=== PATIENT | male | born 1940 | race Hispanic/Latino ===

== ENCOUNTER 2016-10-31 10:38 | Emergency (ER) | payer OTHER ==
[~2016-10-31] VITALS: Ht 172.7 cm; Wt 76.2 kg
[2016-10-31] MEDS ORDERED: METFORMIN HCL1000 M1 PO (11:22)
[2016-10-31] MEDS ORDERED: LEVOTHYROXINE75 MCG PO (11:22)
[2016-10-31] MEDS ORDERED: LIPITOR10 M1 PO (11:23)
[2016-10-31] MEDS ORDERED: HUMULIN N100 UNIT/1 SC (11:25)
--- NOTE | 2016-10-31 11:26 | ED GI/GU/ABDOMINAL COMPLAINT ---
See Addendum History of Present Illness General Chief Complaint: General Adult Stated Complaint: MULTIPLE COMPLAINTS Source: patient, family Exam Limitations: no limitations Vital Signs & Intake/Output Vital Signs & Intake/Output ED Intake and Output 11/01 0000 10/31 1200 Intake Total 1000 Output Total Balance 1000 Intake, IV 1000 Patient 168 lb Weight Allergies Coded Allergies: chicken derived (UNKNOWN 10/31/16) Reconcile Medications Anusol Hc (Anusol-Hc) 25 MG SUPP.RECT 1 SUP RC BID hemorrhoid Atorvastatin Calcium (Lipitor) 10 MG TABLET 1 TAB PO DAILY CHOLESTEROL ( Reported) Ciprofloxacin HCl (Cipro) 500 MG TABLET 1 TAB PO BID uti Humulin N (Veda) (Humulin N) (Unknown Strength) VIAL (Unknown Dose) SC SEE SLIDING SCALE DM (Reported) Levothyroxine Sodium 75 MCG TABLET 1 TAB PO DAILY AC THYROID (Reported) Metformin HCl 1,000 MG TABLET 1 TAB PO BID DM (Reported) Triage Note: PT COMES TO ER WITH COMPLAINTS OF DIFFUSE LOW ABD PAIN THAT AT TIMES INCREASES IN INTENSITY. PT HAS RODRIGUEZ IN PLACE, WAS PLACED IN [facility] WHERE PT LIVES 6 MONTHS OUT OF THE YEAR. PT STATES THAT HE WAS TOLD HE HAD AN ENLARGED PROSTATE. Triage Nurses Notes Reviewed? yes Onset: Abrupt Duration: week(s): (1), constant Timing: recent history Quality/Severity: aching, cramping Severity Numbers: 7 Location: left lower quadrant, suprapubic Radiation: no radiation Activities at Onset: none Prior Abdominal Problems: similar symptoms No Modifying Factors: none Associated Symptoms: denies HPI: 75-year-old male presents with his family for evaluation complaining of a 2 week history of bilateral lower abdominal pain described as cramping associated with urinary retention and decreased appetite. According to the patient's family he just flew in from [facility] this morning landing at 7 AM. His family states that he had a Rodriguez catheter placed one week ago due to urinary retention, and they states that they do not feel safe or comfortable with [facility]. There is been no nausea no vomiting no fever no chills. No change in his bowel movements he denies any blood in his urine no back pain. He is not currently on any antibiotics no history of similar episodes in the past no history of abdominal surgeries. (NEVA BURDICK,CIERRA) Past History Travel History Traveled to [place] past 21 day No Medical History Any Pertinent Medical History? 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 No (CIERRA QUIROS) Review of Systems Review of Systems Constitutional: Reports: see HPI. All Other Systems: Reviewed and Negative Comments Review of systems: See HPI, All other systems negative. Constitutional, no chills no fever, no malaise HEENT: No visual changes no sore throat no congestion Cardiovascular: No chest pain , no palpitation Skin, no rashes, no change in skin Respiratory: No dyspnea no cough no sputum GI: No nausea no vomiting, no diarrhea, : No dysuria No hematuria, no frequency, no discharge Muscle skeletal: No joint pain no back pain, no neck pain, Neurologic: No numbness no headache Psych: No stress Heme/endocrine: No bruising no bleeding Immunology: No lymphadenopathy (CIERRA QUIROS) Physical Exam Physical Exam General Appearance: well developed/nourished, no apparent distress, alert Gastrointestinal: normal bowel sounds, soft, non-tender Comments: Well-developed well-nourished person in no acute distress HEENT: Normal EENT exam; PERRL, EOMI, HEAD is atraumatic. moist mucous membranes. Neck: Supple, , normal range of motion Back: Nontender, no CVA tenderness. Full range of motion Cardiovascular: Regular rate and rhythms no murmurs rubs Respiratory:.There were no bony deformities, no asymmetry. No respiratory distress. Patient speaking in full complete sentences. Breath sounds clear to auscultation bilaterally: NO W/R/R Abdomen: Soft, nontender nondistended, no appreciable organomegaly. Normal bowel sounds. No rebound/guarding, No appreciable enlargement of the abdominal aorta, No ascites. Extremity: No edema, full range of motion of extremities Neuro: Alert oriented x3, motor sensory normal, There were no obvious focal neurologic abnormalities. Skin: No appreciable rash on exposed skin, skin is warm and dry. Psych: Mood and affect is normal, memory and judgment is normal. Core Measures ACS in differential dx? No Severe Sepsis Present: No Septic Shock Present: No (NEVA BURDICK,CIERRA) Progress Differential Diagnosis: AAA, appendicitis, biliary colic, bowel obstruction, colon cancer, cholecystitis, diverticulitis, epididymitis, gastritis, hepatitis, ischemic bowel, inflamm bowel dis, pancreatitis, prostatitis, peptic ulcer, PUD/ GERD, perforated viscous, pyelonephritis, SBO, ureterolithiasis, urinary retention, urethritis, UTI/pyelo, sepsis, malignacy Plan of Care: Orders Procedure Date/time Status CULTURE,URINE 11/01 1119 Active URINALYSIS 11/01 1119 Complete COMPREHENSIVE METABOLIC PANEL 11/01 1119 Complete CBC WITHOUT DIFFERENTIAL 11/01 1119 Complete Laboratory Tests 10/31/16 1150: Urinalysis LIGHT H, Urine Color YEL, Urine Clarity HAZY H, Urine pH 6.0, Ur Specific Butner 1.025, Urine Protein 100 H, Urine Ketones NEG, Urine Nitrite POS H, Urine Bilirubin NEG, Urine Urobilinogen 0.2, Ur Leukocyte Esterase LARGE H, Ur Microscopic SEDIMENT EXAMINED, Urine RBC 10-15 H, Urine WBC > 75 H, Ur Epithelial Cells RARE, Urine Bacteria MANY H, Urine Hemoglobin LARGE H, Urine Glucose NEG 10/31/16 1129: Anion Gap 9, Estimated GFR > 60, BUN/Creatinine Ratio 20.9, Glucose 205 H, Calcium 9.4, Total Bilirubin 0.7, AST 55, ALT 80 H, Alkaline Phosphatase 140 H , Total Protein 6.1 L, Albumin 2.8 L, Globulin 3.3, Albumin/Globulin Ratio 0.8 L, CBC w Diff NO MAN DIFF REQ, RBC 4.92, MCV 86.1, MCH 29.3, RDW 15.7 H, MPV 10.0, Gran % 79.2 H, Lymphocytes % 13.2 L, Monocytes % 5.8, Eosinophils % 1.6, Basophils % 0.2, Absolute Granulocytes 8.7 H, Absolute Lymphocytes 1.5, Absolute Monocytes 0.6, Absolute Eosinophils 0.2, Absolute Basophils 0, PUBS MCHC 34.0 Microbiology 10/31 1150 URINE ROUT: Urine Culture - RECD Labs ordered old records reviewed, case discussed with Dr. bucio Repeat evaluation patient resting comfortable and discussed with the patient and his family at length all his lab results pending CT I discussed the patient and his family his CT results and incidental findings, there is no right upper quadrant tenderness to palpation negative Mandel sign. Need for close follow-up with whom they state the patient has seen before in the past several years ago area discussed with him that we will leave the Rodriguez that was placed in [facility] in at this time d/t bph. Per prescription for Cipro provided the patient is also requesting the suppository which he states he's had before for his hemorrhoids, he denies any bleeding with his bowel movements however states she has been straining and feels that his hemorrhoids are coming back. I advised the patient is family close follow-up with her primary care physician as well as urologist however if his symptoms worsen, decreased urine output fever chills nausea vomiting worsening pain to return to the emergency room immediately answered all their questions they feel comfortable with this plan (NEVA BURDICK,CIERRA) Diagnostic Imaging: Viewed by Me: CT Scan. Discussed w/RAD: CT Scan. Radiology Impression: PRESENT AGE: 75 PATIENT ACCOUNT NO: [id number] : 42 LOCATION: [facility] ORDERING PHYSICIAN: CIERRA BURDICK SERVICE DATE: 10/31/161152 EXAM TYPE: CAT - CT ABD & PELVIS W IV CONTRAST EXAMINATION: CT ABDOMEN AND PELVIS WITH CONTRAST CLINICAL INFORMATION: Urinary retention, lower abdominal pain and fever. Evaluate for pyelonephritis or mass. COMPARISON: None TECHNIQUE: Multidetector volumetric imaging was performed of the abdomen and pelvis before and after the IV administration of 93 mL of of Optiray 320 intravenous contrast. Sagittal and coronal reformatted images were obtained on the technologist's workstation. DLP: 659.42 mGy-cm FINDINGS: LUNG BASES: 0.3 cm calcified granuloma within the left lower lobe. There is a 1.3 cm lucent/cystic emphysematous space in the right lower lobe. There is mild subsegmental atelectasis within the medial segment of the middle lobe, inferior lingula and left lower lobe. LIVER, GALLBLADDER, AND BILIARY TREE: Liver has normal size and contour. Liver parenchyma is diffusely hypodense relative to the spleen on these portal venous phase images; this suggests possibility of mild steatosis. There is cholelithiasis without evidence of gallbladder wall edema or pericholecystic inflammatory change. PANCREAS: Unremarkable. SPLEEN: Unremarkable. ADRENAL GLANDS: Unremarkable. KIDNEYS AND URETERS: Kidneys are normal in size and enhance symmetrically. Mild bilateral perinephric edema. Several simple cortical cysts of the left kidney, largest measuring up to 2 cm. A 1.6 cm simple cortical cyst is present within the right lower pole. Also, there are a few subcentimeter sized hypodense foci that are likely cysts but are too small for definitive characterization. No nephrolithiasis. There is mild right hydronephrosis and moderate right hydroureter. On the left, mild hydroureter is present. There appears to be urothelial thickening of each distal ureter without evidence of ureteral calculus. BLADDER: Urinary bladder is decompressed by a Rodriguez catheter and the bladder base is compressed by the large prostate gland. Mild, diffuse thickening of the bladder wall is present. GASTROINTESTINAL TRACT: Stomach is unremarkable. Bowel loops are normal in size. No evidence of acute inflammation or obstruction along the gastrointestinal tract. No ascites or pneumoperitoneum. ABDOMINAL WALL: Unremarkable. LYMPH NODES: No pathologic sized lymph nodes within the abdomen or pelvis. VASCULAR: Mild atherosclerotic calcification of the abdominal aorta and iliac arteries without aneurysm. PELVIC VISCERA: Large prostate gland measures 6.8 x 5.7 x 7 cm and compresses the bladder base. No pelvic free fluid. OSSEOUS STRUCTURES: L4-L5 and L5-S1 disc space narrowing and vacuum disc phenomenon. Bilateral pars interarticularis defects of L5 with 0.4 cm of retrolisthesis of L4 on L5 and 0.6 cm of grade 1 anterolisthesis of L5 on S1. Mild osteoarthrosis of the hips. IMPRESSION: 1. Large prostate gland (6.8 x 5.7 x 7 cm) compresses the bladder base and likely causes chronic partial bladder outlet obstruction. Diffuse thickening of the urinary bladder wall could reflect presence of detrusor muscle hypertrophy, although cystitis could have a similar appearance. There is bilateral hydroureter (right worse on left) and mild right hydronephrosis. The presence of urothelial thickening of each distal ureter suggests possibility of upper urinary tract infection. However, there is no evidence of pyelonephritis or renal abscess. 2. Cholelithiasis without cholecystitis. DICTATED BY: MADYSON PEREIRA MD DATE/TIME DICTATED:10/31/161307 PLASTIC SHEETS FINISHING SUPERVISOR:RTAM DATE/TIME TRANSCRIBED:10/31/161307 CONFIDENTIAL, DO NOT COPY WITHOUT APPROPRIATE AUTHORIZATION. <Electronically signed in Other Vendor System> SIGNED BY: MADYSON PEREIRA MD 10/31/16 1326 Initial ED EKG: none (CIERRA UQIROS) Departure Departure Time of Disposition: 1352 Disposition: HOME OR SELF CARE Condition: Stable Clinical Impression Primary Impression: UTI (urinary tract infection) Secondary Impressions: Cholelithiasis, Enlarged prostate Referrals: PATIENT HAS NO PRIMARY CARE DR (PCP) ALLIE ROSSI MD Additional Instructions: Follow-up with urologist Dr. Rossi this week. Cipro as directed. Anusol suppository as discussed. Drink plenty of fluids return immediately if he had decreased urine output develop fever chills worsening pain or any other concerns These prescriptions were sent to your pharmacy Departure Forms: Customer Survey General Discharge Information Prescriptions: Current Visit Scripts Ciprofloxacin HCl (Cipro) 1 TAB PO BID #14 TAB Anusol Hc (Anusol-Hc) 1 SUP RC BID #14 SUP (CIERRA QUIROS) PA/STAPLE CUTTER Co-Sign Statement Statement: ED Attending supervision documentation- x I saw and evaluated the patient. I have also reviewed all the pertinent lab results and diagnostic results. I agree with the findings and the plan of care as documented in the PA's/STAPLE CUTTER's documentation. [] I have reviewed the ED Record and agree with the PA's/STAPLE CUTTER's documentation. [] Additions or exceptions (if any) to the PAs/STAPLE CUTTER's note and plan are summarized below: [] (BRIANNE LESLIE,MIGUE)
[2016-10-31 11:36] LABS: ABSOLUTE BASOPHIL COUNT 0 /CUMM (0.0-0.2); ABSOLUTE EOSINOPHIL COUNT 0.2 /CUMM (0.0-0.7); ABSOLUTE GRANULOCYTE CT 8.7 /CUMM (1.4-6.5); ABSOLUTE LYMPH COUNT 1.5 /CUMM (1.2-3.4); ABSOLUTE MONOCYTE COUNT 0.6 /CUMM (0.10-0.60); BASOPHIL % 0.2 % (0.0-2.0); EOSINOPHIL % 1.6 % (0-5); GRANULOCYTE % 79.2 % (42.2-75.2); HEMATOCRIT 42.4 % (42-52); MEAN CORPUSCULAR HGB 29.3 PG (27.0-31.0); MEAN CORPUSCULAR VOLUME 86.1 FL (80.0-94.0); PLATELET COUNT 167 /CUMM (130-400); RBC DISTRIBUTION WIDTH 15.7 % (11.5-14.5); RED BLOOD CELL CT 4.92 /CUMM (4.70-6.10)
[2016-10-31 13:22] VITALS: BP 129/68
--- NOTE | 2016-10-31 13:26 | CT SCAN REPORT ---
EXAMINATION: CT ABDOMEN AND PELVIS WITH CONTRAST CLINICAL INFORMATION: Urinary retention, lower abdominal pain and fever. Evaluate for pyelonephritis or mass. COMPARISON: None TECHNIQUE: Multidetector volumetric imaging was performed of the abdomen and pelvis before and after the IV administration of 93 mL of of Optiray 320 intravenous contrast. Sagittal and coronal reformatted images were obtained on the technologist's workstation. DLP: 659.42 mGy-cm FINDINGS: LUNG BASES: 0.3 cm calcified granuloma within the left lower lobe. There is a 1.3 cm lucent/cystic emphysematous space in the right lower lobe. There is mild subsegmental atelectasis within the medial segment of the middle lobe, inferior lingula and left lower lobe. LIVER, GALLBLADDER, AND BILIARY TREE: Liver has normal size and contour. Liver parenchyma is diffusely hypodense relative to the spleen on these portal venous phase images; this suggests possibility of mild steatosis. There is cholelithiasis without evidence of gallbladder wall edema or pericholecystic inflammatory change. PANCREAS: Unremarkable. SPLEEN: Unremarkable. ADRENAL GLANDS: Unremarkable. KIDNEYS AND URETERS: Kidneys are normal in size and enhance symmetrically. Mild bilateral perinephric edema. Several simple cortical cysts of the left kidney, largest measuring up to 2 cm. A 1.6 cm simple cortical cyst is present within the right lower pole. Also, there are a few subcentimeter sized hypodense foci that are likely cysts but are too small for definitive characterization. No nephrolithiasis. There is mild right hydronephrosis and moderate right hydroureter. On the left, mild hydroureter is present. There appears to be urothelial thickening of each distal ureter without evidence of ureteral calculus. BLADDER: Urinary bladder is decompressed by a Silva catheter and the bladder base is compressed by the large prostate gland. Mild, diffuse thickening of the bladder wall is present. GASTROINTESTINAL TRACT: Stomach is unremarkable. Bowel loops are normal in size. No evidence of acute inflammation or obstruction along the gastrointestinal tract. No ascites or pneumoperitoneum. ABDOMINAL WALL: Unremarkable. LYMPH NODES: No pathologic sized lymph nodes within the abdomen or pelvis. VASCULAR: Mild atherosclerotic calcification of the abdominal aorta and iliac arteries without aneurysm. PELVIC VISCERA: Large prostate gland measures 6.8 x 5.7 x 7 cm and compresses the bladder base. No pelvic free fluid. OSSEOUS STRUCTURES: L4-L5 and L5-S1 disc space narrowing and vacuum disc phenomenon. Bilateral pars interarticularis defects of L5 with 0.4 cm of retrolisthesis of L4 on L5 and 0.6 cm of grade 1 anterolisthesis of L5 on S1. Mild osteoarthrosis of the hips. IMPRESSION: 1. Large prostate gland (6.8 x 5.7 x 7 cm) compresses the bladder base and likely causes chronic partial bladder outlet obstruction. Diffuse thickening of the urinary bladder wall could reflect presence of detrusor muscle hypertrophy, although cystitis could have a similar appearance. There is bilateral hydroureter (right worse on left) and mild right hydronephrosis. The presence of urothelial thickening of each distal ureter suggests possibility of upper urinary tract infection. However, there is no evidence of pyelonephritis or renal abscess. 2. Cholelithiasis without cholecystitis.
[2016-10-31] MEDS ORDERED: ANUSOL-HC25 M1 RC (13:53)
[2016-10-31] MEDS ORDERED: CIPRO500 M1 PO (13:53)
== END 2016-10-31 14:18 ==
LOC: ERH 10:38
PROVIDERS: Physician Assistant Medical
DX: N39.0 Urinary tract infection, site not specified (principal); K80.20 Calculus of gallbladder without cholecystitis without obstruction; N40.1 Benign prostatic hyperplasia with lower urinary tract symptoms; R33.8 Other retention of urine; E11.9 Type 2 diabetes mellitus without complications; Z79.4 Long term (current) use of insulin
CPT/HCPCS: 74177; 81001; 87086; 96374; J0696

== ENCOUNTER 2016-11-27 01:58 | Inpatient (IN) | payer OTHER ==
[~2016-11-27] VITALS: Ht 177.8 cm; Wt 77.1 kg
[~2016-11-27 01:58] MED LIST: ANUSOL-HC25 M1 RC; CIPRO500 M1 PO; HUMULIN N100 UNIT/1 SC; LEVOTHYROXINE75 MCG PO; LIPITOR10 M1 PO; METFORMIN HCL1000 M1 PO
[2016-11-27 12:28] LABS: ABSOLUTE BASOPHIL COUNT 0 /CUMM (0.0-0.2); ABSOLUTE EOSINOPHIL COUNT 0.1 /CUMM (0.0-0.7); ABSOLUTE GRANULOCYTE CT 5.1 /CUMM (1.4-6.5); ABSOLUTE LYMPH COUNT 1.1 /CUMM (1.2-3.4); ABSOLUTE MONOCYTE COUNT 0.2 /CUMM (0.10-0.60); BASOPHIL % 0.2 % (0.0-2.0); EOSINOPHIL % 1.2 % (0-5); GRANULOCYTE % 78.9 % (42.2-75.2); HEMATOCRIT 40.3 % (42-52); MEAN CORPUSCULAR HGB 28.9 PG (27.0-31.0); MEAN CORPUSCULAR HGB CONC 34.2 G/DL (33.0-37.0); MEAN CORPUSCULAR VOLUME 84.5 FL (80.0-94.0); MEAN PLATELET VOLUME 9.8 FL (7.4-10.4); RBC DISTRIBUTION WIDTH 14.2 % (11.5-14.5); RED BLOOD CELL CT 4.76 /CUMM (4.70-6.10); WHITE BLOOD CELL COUNT 6.5 /CUMM (4.8-10.8)
[2016-11-27 12:43] LABS: PLATELET COUNT 93 /CUMM (130-400)
[2016-11-27 13:49] VITALS: BP 130/80
--- NOTE | 2016-11-27 20:18 | NUR ---
SHIFT NOTE- CALLED TO PT'S ROOM AT THIS TIME, PT STATED HE FELT "SOMETHING WET" UNDERNEATH HIS GOWN. SMALL AMT BLOOD NOTED TO TIP OF PENIS AND GOWN, DENIES PAIN OR DISCOMFORT. CBI INFUSING WITHOUT ISSUES, URINE IS PINK IN COLOR, NO CLOTS. SURGICAL PA MADE AWARE. WILL CONTINUE TO MONITOR.
[2016-11-27 22:34] VITALS: BP 128/60
[2016-11-28 06:55] VITALS: BP 118/70
[2016-11-28 14:54] VITALS: BP 124/60
[2016-11-28 22:59] VITALS: BP 140/80
[2016-11-29 06:43] VITALS: BP 136/72
--- NOTE | 2016-11-29 14:15 | PN- Urology ---
Surgical Brief Attending Note Brief Attending Note: PT COMFORTABLE: VSS AFEBRILE, ONE BM YEST.. AMBULATORY TODAY: CBI STOPPED AND URINE OUTPUT CONTINUES TO BE BLOODY WITH SMALL CLOTS. PLAN: KEEP ONE MORE NIGHT -MANUALLY IRRIGATE WITH STERILE WATER Q 6 HOURS, PRN HEMATURIA.
[2016-11-29 14:16] VITALS: BP 140/80
[2016-11-29 22:47] VITALS: BP 136/78
[2016-11-30 06:42] VITALS: BP 128/76
[2016-11-30] MEDS ORDERED: CIPRO500 M1 PO (08:03)
[2016-11-30] MEDS ORDERED: FINASTERIDE5 M1 PO (08:03)
[2016-11-30] MEDS ORDERED: PERCOCET 5-3251 EACH PO (08:03)
[2016-11-30] MEDS ORDERED: PHENAZOPYRIDIN100 M3 PO (08:03)
[2016-11-30] MEDS ORDERED: DOCUSATE SODIU100 M3 PO (08:03)
--- NOTE | 2016-11-30 16:55 | NUR ---
WHEN DISCHARGING PT, PT STATED HE DID NOT RECEIVE PRESCRIPTIONS FROM DR. SULLIVAN. WHEN SPEAKING TO DR. SULLIVAN EARLIER, DR. SULLIVAN STATED THE PATIENT HAD THE PRESCRIPTIONS ALREADY. CALLED DR. SULLIVAN'S ANSWERING SERVICE AND WAS REFERRED TO DR. POOLE ANSWERING SERVICE. DR. POOLE ANSWERING SERVICE TOOK THE MESSAGE REGARDING THE NEED FOR CLARIFICATION OF MEDICATIONS. NO ANSWER FROM DR. POOLE OFFICE. SPOKE WITH [facility] Alexandra WHO RECOMMENDED CALLING SURGICAL PAS. FRANCISCO BURDICK REVIEWED PT'S CASE AND SENT PRESCRIPTIONS TO PT'S PHARMACY. PT VERBALIZED UNDERSTANDING OF MEDICATIONS AND IS GOING TO [facility] NOW.
--- NOTE | 2016-12-12 10:46 | Surgical Discharge Summary ---
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 Home Who Do You Live With? Spouse Services at Home: None What is Your Primary Language? Albanian Review of Systems: n/c x 12 Physical Exam: ROS: n/c x 12 Hospital Course Course Attending Physician: ALLIE SULLIVAN MD Primary Care Physician: PATIENT HAS NO PRIMARY CARE DR Hospital Course: unremarkable except for need to maintain CBI until POD 2 due to hematuria. successful vt prior to home Complications: none Allergies: Coded Allergies: chicken derived (UNKNOWN 10/31/16) Significant Procedures: turp Disposition Summary Disposition Principal Diagnosis: bph: urinary retention Additional Diagnosis: hematuria Discharge Disposition: home or self care Discharge Instructions General Discharge Information Code Status: Full Code Patient's Diet: regular Patient's Activity: as tolerated Follow-Up Instructions/Appts: f/u 2 weeks Medications at Discharge Discharge Medications: Continue taking these medications: Metformin HCl (Metformin HCl) 1,000 MG TABLET 1 Tablet ORAL TWICE DAILY Comments: Last Taken: 11/30/16 Time: 0800 AM Levothyroxine Sodium (Levothyroxine Sodium) 75 MCG TABLET 1 Tablet ORAL DAILY BEFORE BREAKFAST Comments: Last Taken: 11/30/16 Time: 0600 AM Humulin N (Veda) (Humulin N) (Unknown Strength) VIAL Unknown Dose Inject into fatty tissue SEE SLIDING SCALE Comments: NOT GIVEN Start taking the following new medications: Ciprofloxacin HCl (Cipro) 500 MG TABLET 500 Milligram ORAL TWICE DAILY Qty = 30 No Refills Comments: Last Taken: 11/30/16 Time: 0930 AM Oxycodone HCl/Acetaminophen (Percocet 5-325 MG Tablet) 5 MG-325 MG TABLET 1 Tablet ORAL EVERY 4 HOURS NEEDED as needed for ABDOMINAL PAIN Qty = 30 No Refills Comments: NOT GIVEN Docusate Sodium (Docusate Sodium) 100 MG CAPSULE 100 Milligram ORAL THREE TIMES DAILY Qty = 30 No Refills Comments: Last Taken: 11/30/16 Time: 0930 AM Phenazopyridine HCl (Phenazopyridine HCl) 100 MG TABLET 100 Milligram ORAL AFTER MEALS Qty = 30 No Refills Comments: Last Taken: 11/30/16 Time: 2 PM Finasteride (Finasteride) 5 MG TABLET 5 Milligram ORAL DAILY Qty = 30 No Refills Comments: Last Taken: 11/30/16 Time: 0930 AM Copies To: NATE LESLIE,ALLIE Attending MD Review Statement Attending Statement Attending MD Statement: examined this patient Attending Assessment/Plan: pt with successful VT post TURP; hospital course unremarkable.
== END 2016-11-30 16:55 | DRG 713 ==
LOC: ENRESERVTM → ENRESERVDT → STS 01:58 → PACUH 11:30 → ENPENDDIS 11:30 → 2NA 11:30
PROVIDERS: ADMIT Urology
PROC: 0VT08ZZ Resection of Prostate, Via Natural or Artificial Opening Endoscopic (ICD-10-PCS; principal; 2016-11-27)
DX: N40.1 Benign prostatic hyperplasia with lower urinary tract symptoms (principal); N13.8 Other obstructive and reflux uropathy; R31.9 Hematuria, unspecified; E11.9 Type 2 diabetes mellitus without complications; R33.8 Other retention of urine; Z79.84 Long term (current) use of oral hypoglycemic drugs
CPT/HCPCS: 2NASP; 82436; 88305; 90662; J0131